=== PATIENT | female | born 1960 | race Caucasian/White ===

== ENCOUNTER 2019-03-16 15:00 | Outpatient (CLI) | payer OTHER ==
[2019-03-16] MEDS ORDERED: NAPR-685 PO (15:43)
[2019-03-16] MEDS ORDERED: BUPR300T49 PO (15:43)
[2019-03-16] MEDS ORDERED: LOSA100T14 PO (15:43)
[2019-03-16] MEDS ORDERED: LACT1CAP35 PO (15:43)
[2019-03-16] MEDS ORDERED: HYDR25TA6 PO (15:43)
[2019-03-21] MEDS ORDERED: MIDAZOLAM 1 MG/ML, 2ML ONE (11:13)
[2019-03-21] MEDS ORDERED: FENTANYL PF 250 MCG/5ML ONE (11:14)
[2019-03-21] MEDS ORDERED: GLYCOPYRROLATE 0.2MG/1ML, 5ML ONE (11:18)
[2019-03-21] MEDS ORDERED: PROPOFOL 10 MG/ML, 20ML ONE (11:18)
[2019-03-21] MEDS ORDERED: DEXAMETHASONE 4 MG/ML, 1ML ONE (11:18)
[2019-03-21] MEDS ORDERED: ROCURONIUM 10MG/ML,5ML ONE (11:18)
[2019-03-21] MEDS ORDERED: NEOSTIGMINE 1 MG/ML, 10ML ONE (11:18)
[2019-03-21] MEDS ORDERED: ONDANSETRON 2MG/ML, 2ML ONE (11:18)
[2019-03-21] MEDS ORDERED: CEFAZOLIN 1,000 MG ONE (11:18)
[2019-03-21] MEDS ORDERED: FENTANYL PF 100 MCG/2ML ONE (13:35)
== END 2019-03-16 23:59 | disposition home or self-care (01) ==
LOC: STAR 15:00
PROVIDERS: ATTEND Obstetrics & Gynecology Female Pelvic Medicine and Reconstructive Surgery
DX: Z02.9 Encounter for administrative examinations, unspecified (principal)